=== PATIENT | male | born 1980 | race African-American/Black ===

== ENCOUNTER 2021-02-10 22:08 | Emergency (ER) | payer OTHER ==
[~2021-02-10] VITALS: Ht 190.5 cm; Wt 93.0 kg
[2021-02-10 22:10] VITALS: BP 148/97
== END 2021-02-11 04:23 | disposition left against medical advice (07) ==
LOC: ER 22:08
DX: R07.89 Other chest pain (principal); Z53.21 Procedure and treatment not carried out due to patient leaving prior to being seen by health care provider
CPT/HCPCS: 71046

== ENCOUNTER 2023-03-17 15:51 | Emergency (ER) | payer OTHER, MEDICAID ==
[~2023-03-17] VITALS: Ht 190.5 cm; Wt 81.8 kg
[2023-03-17 17:30] VITALS: BP 121/75; PULSE 107; RESP 18; TEMP 98.3; O2SAT 99
[2023-03-17] MEDS ORDERED: KETOROLAC TROMETH 60MG/2ML VIAL IM ONE (17:30)
[2023-03-17] MEDS ORDERED: BACL10TA PO (17:48)
[2023-03-17] MEDS ORDERED: IBUP-1456 PO (17:48)
== END 2023-03-17 17:59 | disposition home or self-care (01) ==
LOC: ER 15:51
DX: G89.29 Other chronic pain (principal); M25.511 Pain in right shoulder; Z87.81 Personal history of (healed) traumatic fracture; Z79.899 Other long term (current) drug therapy
CPT/HCPCS: 73030; 96372; 99283; J1885